=== PATIENT | female | born 1975 | race Hispanic/Latino ===

== ENCOUNTER → 2020-03-27 | Outpatient (REF) | payer OTHER ==
[~2020-03-27] MED LIST: ACET500C OR; NAPR250T OR; NEUR100C OR; NORFLEX PO; ORPHENADRINE PO; ZOLO100T OR
== END ==
LOC: M LAB REF 10:48
PROVIDERS: ATTEND Physician Assistant
DX: Z11.59 Encounter for screening for other viral diseases (principal)